=== PATIENT | male | born 1990 | race Hispanic/Latino ===

== ENCOUNTER → 2017-10-30 | Outpatient (CLI) | payer OTHER ==
[~2017-10-30] MED LIST: CONRAY-43 43% 50ML VIAL (Q9960) As Ordered ONE; PROHANCE 279.3MG/ML 5ML VIAL (A9576) As Ordered ONE
--- NOTE | 2017-10-30 13:08 | REP ---
MR ARTHROGRAM LEFT HIP: TECHNIQUE: Coronal T1, STIR through the pelvis, T2 fat sat, left hip all three planes, axial oblique proton density fat sat left hip. There is a small hyperintense focus along the anterior aspect of the right femoral neck on the coronal STIR images of the pelvis, most consistent with a small synovial herniation pit. There is no occult fracture or other areas of abnormal marrow signal. No avascular necrosis is seen of either femoral head. Left hip demonstrates no evidence of a labral tear. There is a linear cleft in the base of the superior labrum at the junction with the adjacent acetabular cartilage. This has a similar appearance on the right and appears to represent a normal variant. There is no paralabral cyst. There is no joint effusion. Surrounding soft tissue structures are unremarkable. Visualized intrapelvic structures are unremarkable. IMPRESSION: Essentially negative MR arthrogram of the left hip. Signed by Justin Gonsalez MD 10/30/2017 08:39 P
--- NOTE | 2017-10-30 20:31 | REP ---
Left hip arthrogram The procedure was performed under the direction supervision of Dr. Gonsalez. The benefits and risks including but not limited to pain, infection, bleeding and anaphylaxis were explained to the patient and informed consent was obtained. The left femoral neck was localized using fluoroscopic guidance. Skin was prepped and draped in a sterile fashion. 1% lidocaine was used as a local anesthetic. Using fluoroscopic guidance a 22 gauge spinal needle was inserted and advanced to the femoral neck. 0.5 ml of Conray 43 was injected to verify placement. 11 ml of a solution containing 20 ml of sterile saline and 0.15 ml of ProHance was injected into the joint. The needle was removed and the patient was taken to MRI for postprocedural imaging. The the patient tolerated the procedure well and there were no immediate complications. Less than 1 second of fluoro time was utilized for this procedure. Reviewed by COURT Chun 10/30/2017 05:16 PSigned by Justin Gonsalez MD 10/30/2017 08:21 P
== END ==
LOC: M RADPRO 08:06
PROVIDERS: ATTEND Physician Assistant
DX: M25.552 Pain in left hip (principal)
CPT/HCPCS: 27093; 73723; 77002; A9576; Q9960